=== PATIENT | male | born 1950 | race Hispanic/Latino ===

== ENCOUNTER 2019-10-17 13:01 | Emergency (ER) | payer MEDICARE ==
[2019-10-17 13:12] VITALS: BP 149/69
--- NOTE | 2019-10-17 13:39 | XRay Report ---
RIGHT FOREARM 2 VIEWS INDICATION: trauma, pain. COMPARISON: No relevant prior imaging study available. FINDINGS: No acute skeletal abnormality. There is significant soft tissue swelling along the radial/volar aspect of the distal forearm soft ti ssue defect superficially suggestive of laceration injury. No radiodense foreign bodies. IMPRESSION: 1. Distal forearm soft tissue injury as above. Signer Name: Conner Carreno MD Signed: 10/17/2019 1:35 PM Workstation Name: [id number]
[2019-10-17] MEDS ORDERED: ACETAMINOPHEN 500 MG TAB PO ONE (14:44)
[2019-10-17] MEDS ORDERED: LIDOCAINE 1%/EPINEPHRINE 1:100,000 VIAL (20 ML) INFILTRATI ONE (14:46)
[2019-10-17] MEDS ORDERED: SODIUM CHLORIDE 0.9% IRR 500 ML BOTTLE IR ONE (15:02)
[2019-10-17] MEDS ORDERED: SODIUM CHLORIDE IRRI 500 ML 500 ML IR ONE (15:03)
--- NOTE | 2019-10-17 15:57 | Emergency Department Report ---
[place] Lac[facility] Chief Complaint: Wound/Laceration Stated Complaint: RT ARM LACERACTION Time Seen by Provider: 10/17/19 14:44 Occurred When: Today Severity: moderate Laceration Symptoms: Yes Pain Other History: 69-year-old male presents to the emergency room for a laceration to the right forearm from a garage door spring. Patient has a past medical history of GERD and chronic back pain. ED Review of Systems ROS: Stated complaint: RT ARM LACERACTION Other details as noted in HPI ED Past Medical Hx - Past Medical History Previous Medical History?: Yes Hx GERD: Yes Additional medical history: SINUSITIS. CHRONIC BACK PAIN - Surgical History Past Surgical History?: Yes Additional Surgical History: LAMENECTOMY X 2. T & A - Social History Smoking Status: Current Every Day Smoker Substance Use Type: None - Medications Home Medications: Home Medications Medication Instructions Recorded Confirmed Last Taken Type Aspirin [Aspirin BABY CHEW TAB] 81 mg PO DAILY 06/09/15 06/09/15 Unknown History Cetirizine HCl [ZyrTEC] 10 mg PO DAILY 06/09/15 06/09/15 Unknown History HYDROcodone/APAP 5-325 [[place] 1 each PO Q6HR PRN #20 tablet 06/09/15 Unknown Rx 5/325] cephALEXin [Keflex] 1,000 mg PO Q12HR #28 cap 06/09/15 Unknown Rx Acetaminophen/Codeine [Tylenol 1 tab PO Q6H PRN #12 tab 10/17/19 Unknown Rx /Codeine # 3 tab] cephALEXin [Keflex] 500 mg PO Q12HR 7 Days #14 cap 10/17/19 Unknown Rx Laceration Physical Exam - Exam General: Vital signs noted. No distress. Alert and acting appropriately. Wound Length (cm): 8 Laceration Location: Upper Extremity (right) Laceration Exam: Yes Normal Distal CMS, No Foreign Body, No Exposed Tendon, Vessel, or Nerve, No Tendon Injury ED Course Vital Signs 10/17/19 10/17/19 13:08 13:09 Temperature 98.2 F Pulse Rate 79 Respiratory 18 Rate Blood Pressure 149/69 [Right] O2 Sat by Pulse 96 Oximetry - Laceration /Wound Repair Right Volar Arm Wound Location: upper extremity Wound Length (cm): 8 Wound's Depth, Shape: into muscle Wound Explored: no foreign body removed Irrigated w/ Saline (ccs): 500 Betadine Prep?: Yes Anesthesia: Lidocaine w/ Epi Volume Anesthetic (ccs): 8 Wound Repaired With: sutures Suture Size/Type: 3:0, proline Number of Sutures: 7 Sterile Dressing Applied?: Yes Progress: Tolerated well ED Medical Decision Making - Medical Decision Making 69-year-old male presents to the emergency room for a laceration to the right forearm from a garage door spring. Patient has a past medical history of GERD and chronic back pain. Laceration was repaired with 3.0 Prolene sutures proximally 8. Steri gauze was placed. Patient be discharged home on Keflex tramadol and to return back in 7 to 10 days for suture removal. Critical care attestation.: If time is entered above; I have spent that time in minutes in the direct care of this critically ill patient, excluding procedure time. ED Disposition Clinical Impression: Laceration of right forearm Qualifiers: Encounter type: initial encounter Qualified Code(s): S51.811A - Laceration without foreign body of right forearm, initial encounter Disposition: TO HOME OR SELFCARE Is pt being admited?: No Does the pt Need Aspirin: No Condition: Stable Instructions: Laceration (ED), Suture Care (ED) Additional Instructions: Keep wound clean and dry. Return back to the emergency room in 7 to 10 days for suture removal. Complete antibiotics take pain medication as needed. Prescriptions: cephALEXin [Keflex] 500 mg PO Q12HR 7 Days #14 cap Acetaminophen/Codeine [Tylenol /Codeine # 3 tab] 1 tab PO Q6H PRN #12 tab PRN Reason: Pain , Severe (7-10) Referrals: [facility] [Provider Group] - 3-5 Days
[2019-10-17] MEDS ORDERED: DIPHtheria,PERTUSSIS(ACELL),TETANUS VACCINE/PF 0.5 ML VIAL IM ONE (16:01)
== END 2019-10-17 16:25 | disposition home or self-care (01) ==
LOC: ED 13:01
DX: S51.811A Laceration without foreign body of right forearm, initial encounter (principal); K21.9 Gastro-esophageal reflux disease without esophagitis; F17.200 Nicotine dependence, unspecified, uncomplicated; Z98.890 Other specified postprocedural states; Z79.899 Other long term (current) drug therapy; X58.XXXA Exposure to other specified factors, initial encounter; Y93.89 Activity, other specified; Y92.89 Other specified places as the place of occurrence of the external cause; Y99.8 Other external cause status
CPT/HCPCS: 90471; 90715

== ENCOUNTER 2021-06-08 04:44 | Emergency (ER) | payer MEDICARE ==
[2021-06-08 04:54] VITALS: BP 146/80
--- NOTE | 2021-06-08 05:23 | XRay Report ---
CHEST 1 VIEW INDICATION / CLINICAL INFORMATION: Chest Pain X 3 WEEKS. COMPARISON: None available. FINDINGS: SUPPORT DEVICES: None. HEART / MEDIASTINUM: No significant abnormality. LUNGS / PLEURA: No significant pulmonary or pleural abnormality. BONES: No significant osseous abnormality. ADDITIONAL FINDINGS: No significant additional findings. IMPRESSION: 1. No active cardiopulmonary disease. Signer Name: Eric Castro II, MD Signed: 06/08/2021 5:19 AM Workstation Name: [email or web address]
[2021-06-08 05:54] LABS: Basophils # (Auto) 0.2 K/mm3 (0.0-0.1); Basophils % (Auto) 1.1 % (0.0-1.8); Eosinophils # (Auto) 0.3 K/mm3 (0.0-0.4); Eosinophils % (Auto) 1.9 % (0.0-4.3); Hematocrit 51.2 % (35.5-45.6); Hemoglobin 17.8 gm/dl (11.8-15.2); Lymphocytes % (Auto) 13.1 % (13.4-35.0); Mean Corpuscular HGB Conc 35 % (32-34); Mean Corpuscular Volume 95 fl (84-94); Monocytes # (Auto) 1.2 K/mm3 (0.0-0.8); Monocytes % (Auto) 7.7 % (0.0-7.3); Platelet Count 247 K/mm3 (140-440); Red Blood Count 5.37 M/mm3 (3.65-5.03); Red Cell Distribution Width 13.8 % (13.2-15.2)
[2021-06-08 06:14] LABS: Calcium 9.3 mg/dL (8.4-10.2)
--- NOTE | 2021-06-09 10:20 | Electrocardiograph Report ---
[facility] Test Date: 2021-06-08 Test Time: 05:06:30 Pat Name: WIL CANCHOLA Department: Room: Gender: M Electrical Engineering Technologist: SAMAN : 1950 Requested By: ED DOC Order Number: [id number] Reading MD: Lukas Bonilla Measurements Intervals [place] Rate: 73 P: 66 MT: 185 QRS: 69 QRSD: 91 T: 98 QT: 373 QTc: 411 Interpretive Statements Sinus rhythm Probable left atrial enlargement Repol abnrm suggests ischemia, diffuse leads No previous ECG available for comparison Electronically Signed On 06-09-2021 10:19:39 EDT by Lukas Bonilla
== END 2021-06-08 07:00 | disposition left against medical advice (07) ==
LOC: ED 04:44
DX: R07.89 Other chest pain (principal); Z53.21 Procedure and treatment not carried out due to patient leaving prior to being seen by health care provider
CPT/HCPCS: 36415; 71045; 80048; 84484; 85025; 93005